=== PATIENT | male | born 1980 | race Caucasian/White ===

== ENCOUNTER 2021-08-31 16:37 | Emergency (ER) | payer MEDICARE ==
[~2021-08-31] VITALS: Ht 167.6 cm; Wt 70.4 kg
[2021-08-31] MEDS ORDERED: fentaNYL PF VIAL 100 MCG/2 ML VIAL IM ONE (17:00)
[2021-08-31] MEDS: fentaNYL PF VIAL 100 MCG/2 ML VIAL IVP ONE ×3 (17:23→20:17)
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
--- NOTE | 2021-08-31 18:06 | RAD ---
Study: XR ELBOW COMPLETE_LEFT 3+VIEWS Indication: Wrist pain and deformity. Comparison: None. Findings: No displaced fracture at the elbow. Elbow joint alignment is maintained. No large elbow joint effusio n noting obliquity on the lateral view. The radial and ulnar shafts are intact. Fracture/dislocation at the wrist detailed in a separate report. Impression: No acute fracture or malalignment at the elbow. Electronically signed by: GABBIE GORDON MD (08/31/2021 6:04 PM) [facility]
--- NOTE | 2021-08-31 18:12 | RAD ---
Study: XR LT WRIST 3VIEWS Indication: Wrist pain and deformity. Comparison: None. Findings: Comminuted, displaced and shortened distal radius fracture. The radial articular surface and associat ed smaller fracture fragments are displaced and rotated dorsally along with the carpus in relation to the radial shaft. Shortening on the order of 1.5 cm. Acute fracture of the distal ulna to include th e ulnar styloid difficult to characterize due to the overlying triquetrum. No definitive carpal bone fracture or gross carpal malalignment. Impression: Acute, displaced and shortened distal radius fracture with radiocarpal intra-articular extension. The radial articular surface along with the carpus are dorsally displaced and shortened in relation to t he radial shaft. There is also an acute fracture of the distal ulna to include the ulnar styloid proc ess. Attention on post reduction radiographs for further assessment of any additional fractures. Electronically signed by: GABBIE GORDON MD (08/31/2021 6:09 PM) [facility]
[2021-08-31] MEDS ORDERED: ONDANSETRON PF 4 MG/2 ML VIAL. ONE (19:39)
[2021-08-31 19:40] VITALS: BP 128/68
[2021-08-31] MEDS: ONDANSETRON PF 4 MG/2 ML VIAL. IVP ONE (20:15)
[2021-08-31] MEDS: MIDAZOLAM HCL/PF 5 MG/5 ML VIAL. NS ONE ×2 (20:18→20:19)
[2021-08-31] MEDS ORDERED: HYDR-2761 PO ×3 (20:28→20:54)
--- NOTE | 2021-08-31 21:12 | RAD ---
Study: XR LT WRIST 2 VIEWS Indication: Postreduction. Comparison: 08/31/2021 at 1710 hours. Findings: Casting material is in place which obscure fine osseous detail. Redemonstrated comminuted distal radius fracture with intra-articular extension into the radiocarpal and distal radioulnar joints. There is persistent dorsal displacement of the radial articular surface relative to the shaft by approximately 0.9 cm but significantly improved from the prior. Fracture at the base of the ulnar styloid process which remains mildly displaced but less so from the comparison with the styloid deviated by 0.5 cm in the radial direction. No definitive carpal bone fracture. The scapholunate interval is within normal limits. Impression: Mild persistent dorsal displacement of the distal radius fracture but significantly improved from the prior. The fracture exhibits intra-articular extension into both the radiocarpal and distal radiouln ar joints. Fracture through the base of the ulnar styloid process with mild displacement but also imp roved. Electronically signed by: GABBIE GORDON MD (08/31/2021 9:10 PM) [facility]
[2021-08-31 21:24] VITALS: BP 129/74
[2021-09-10] MEDS ORDERED: OXYC1TAB19 PO (15:33)
== END 2021-08-31 21:44 | disposition home or self-care (01) ==
LOC: ER 16:37
DX: S52.501A Unspecified fracture of the lower end of right radius, initial encounter for closed fracture (principal); S52.601A Unspecified fracture of lower end of right ulna, initial encounter for closed fracture; G35 Multiple sclerosis; Y08.89XA Assault by other specified means, initial encounter; Y93.89 Activity, other specified; Y92.89 Other specified places as the place of occurrence of the external cause; Y99.8 Other external cause status
CPT/HCPCS: 25605; 73080; 73100; 73120; 94760; 96374; 99152; 99285; J2250; J2405; J3010

== ENCOUNTER → 2021-09-09 | Outpatient (CLI) | payer MEDICARE ==
[2021-08-31 21:24] VITALS: BP 129/74
[~2021-09-09] MED LIST: HYDR-2761 PO; OXYC1TAB19 PO
== END ==
LOC: LAB 11:15
PROVIDERS: ATTEND Orthopaedic Surgery
DX: Z01.812 Encounter for preprocedural laboratory examination (principal); Z20.822 Contact with and (suspected) exposure to COVID-19
CPT/HCPCS: U0003; U0005

== ENCOUNTER 2021-09-10 12:54 | Day surgery (SDC) | payer MEDICARE ==
[~2021-09-10] VITALS: Ht 167.6 cm; Wt 71.8 kg
[~2021-09-10 12:54] MED LIST changes: +HYDROmorphone 2 MG/ML VIAL IVP PRN; +IV RINGERS,LACTATED 1000ML 1,000 ML IV SCH; -OXYC1TAB19 PO; +PROCHLORPERAZINE 10 MG/2 ML VIAL. IVP PRN; +fentaNYL PF VIAL 100 MCG/2 ML VIAL IVP PRN
[2021-09-10] MEDS ORDERED: ROPIVacaine 0.5% PF 20 ML VIAL. ONE (13:26)
[2021-09-10] MEDS ORDERED: BUPIVACAINE MPF 0.5% 30 ML VIAL. ONE (13:26)
[2021-09-10 13:30] VITALS: BP 126/75
[2021-09-10] MEDS ORDERED: SCOPOLAMINE 1.5MG PATCH. TD ONE (13:30)
[2021-09-10] MEDS ORDERED: PROPOFOL 10 MG/ML (20ML) VIAL. IV ONE (13:36)
[2021-09-10] MEDS ORDERED: LIDOCAINE 2% PF 5 ML VIAL. ONE (13:36)
[2021-09-10] MEDS ORDERED: MIDAZOLAM HCL/PF 2 MG/2 ML VIAL. ONE (13:37)
[2021-09-10] MEDS ORDERED: fentaNYL PF VIAL 100 MCG/2 ML VIAL ONE ×3 (13:37→16:51)
[2021-09-10] MEDS ORDERED: OXYC1TAB19 PO (15:33)
--- NOTE | 2021-09-10 15:35 | DISCH ---
DISCHARGE INSTRUCTIONS Condition on Discharge Condition on Discharge: Stable Activity After Discharge Activity Instructions for Disc: Other, see below (Fine motor use of hand pe rmitted such as eating writing and typing. No hard grasping lifting pushing or pulling) Lifting Instructions after Dis: No heavy lifting, No pulling or pushing Weight Bearing Status after Di: Non weight bearing Diet after Discharge Diet after Discharge: Regular Wound Incision Care Wound/Incision Care: Ice to area for comfort, Keep wound elevated, Do not change dressing (Maintain splint and dressing unless soiled or wet) Contacting the DRArmnad after DC Call your doctor for: Concerns you may have Follow-Up Follow up with: Dr. Petersen or Renny 7 to 10 days MAGAN PETERSEN MD Sep 10, 2021 15:35
[2021-09-10] MEDS ORDERED: DEXAMETHASONE SOD PHOS 4 MG/ML VIAL ONE (15:53)
[2021-09-10] MEDS ORDERED: ONDANSETRON PF 4 MG/2 ML VIAL. ONE (15:53)
[2021-09-10] MEDS ORDERED: SEVOFLURANE 61 TO 120 MINUTES. IH ONE (16:28)
[2021-09-10] MEDS ORDERED: MORPHINE SULFATE 2 MG/ML INJ. ONE (16:51)
[2021-09-10] MEDS: fentaNYL PF VIAL 100 MCG/2 ML VIAL IVP PRN ×2 (16:54→17:01)
[2021-09-10] MEDS: MORPHINE SULFATE 2 MG/ML INJ. IVP PRN ×2 (16:55→17:06)
--- NOTE | 2021-09-10 16:57 | PDOC4 ---
Operative Note Operative Note Preoperative diagnosis: Displaced angulated left intra-articular distal radius fracture Postoperative diagnosis: Same Operative procedure: Operative reduction internal fixation left intra-articular distal radius fracture Surgeon: Trinity Tooth Cutter Clutch Michael pena Anesthesia: General Estimated blood loss: 10 cc Complications: None Operative indications: Please see my dictated orthopedic consult for detailed operative indications and note that we went over risk benefits postoperative course including the possibility of infection nonhealing, hardware failure, nerve or blood vessel damage stiffness continued pain medical other anesthetic complications among others. All her questions were answered he wishes to proceed with surgical evaluation and treatment Operative text: Patient was identified procedure verified patient placed in the supine position on the operating table. After adequate amounts of general anesthesia were administered the left upper extremity was prepped and draped in standard sterile fashion with an upper arm tourniquet. After timeout was performed patient procedure identified and verified the right upper extremity was exsanguinated by Esmarch bandage tourniquet inflated to 300 mmHg and a standard volar Yves approach was carried out to the distal radius. The distal radius fracture was reduced under fluoroscopic guidance and a standard Gm DVR cross lock distal radial plate was placed with a nonlocking shaft screw placed in the sliding hole and minute adjustments were carried out. A K wire was advanced to verify placement of screws at the joint line and distal locking screws were placed under fluoroscopic guidance with excellent placement. Proximal locking screws were then placed under fluoroscopic guidance as well and finally nonlocking screws used to secure the plate to the shaft. All hardware and reduction were verified under fluoroscopic guidance. Thorough irrigation carried out with normal saline solution closure accomplished with buried Vicryl subcuticular Monocryl Steri-Strips and Mastisol and a well-padded volar Ortho- Glass splint was placed. Fingers were noted to be warm pink following deflation of the tourniquet patient was returned to recovery room in stable condition having tolerated procedure well. Michael estrada assist was present for the procedure assisted in patient positioning prepping draping retraction closure and dressings MAGAN DAI MD Sep 10, 2021 16:57
[2021-09-10] MEDS ORDERED: oxyCODONE/APAP 7.5/325 1 TAB TABLET PO ONE (17:00)
[2021-09-10 17:20] VITALS: BP 140/80
== END 2021-09-10 17:45 | disposition home or self-care (01) ==
LOC: SURG 12:54
PROVIDERS: ATTEND Orthopaedic Surgery
DX: S52.572A Other intraarticular fracture of lower end of left radius, initial encounter for closed fracture (principal); M19.90 Unspecified osteoarthritis, unspecified site; F41.9 Anxiety disorder, unspecified; F32.9 Major depressive disorder, single episode, unspecified; Z79.899 Other long term (current) drug therapy; Z98.890 Other specified postprocedural states; X58.XXXA Exposure to other specified factors, initial encounter; Y93.89 Activity, other specified; Y92.89 Other specified places as the place of occurrence of the external cause; Y99.8 Other external cause status
CPT/HCPCS: 25608; A4209; A4364; A4930; A6402; A6449; C1713; J0690; J1100; J2250; J2270; J2405; J2704; J3010; J3490; 76000; A4452; J2795